=== PATIENT | male | born 1970 | race Caucasian/White ===

== ENCOUNTER 2016-08-30 10:08 | Emergency (ER) | payer OTHER ==
[2016-08-30] MEDS ORDERED: NS 0.9% 1000 ML* 2,000 ML IV ONE (11:51)
[2016-08-30 12:13] LABS: Hematocrit 42 % (42-52); Hemoglobin 13.8 g/dl (14.0-18.0); Mean Corpuscular HGB Conc 33 g/dl (31-36); Mean Corpuscular Hemoglobin 30 pg (27-31); Mean Corpuscular Volume 91 fL (80-94); Mean Platelet Volume 8 um3 (7.4-10.4); Red Blood Count 4.58 10^6/ul (4.0-5.4); Red Cell Distribution Width 14 % (10.5-15); White Blood Count 11.5 10^3/ul (3.5-10.8)
[2016-08-30 12:20] LABS: Urine Bilirubin Negative (Negative); Urine Glucose Negative (Negative); Urine Nitrite Negative (Negative)
--- NOTE | 2016-08-30 12:24 | RAD ---
INDICATION: Syncope. COMPARISON: Comparison is made with a prior chest x-ray study from July 05, 2015. TECHNIQUE: A portable view of the chest was obtained. FINDINGS: Cardiac and mediastinal contours appear to be within normal limits. The lungs are hyperinflated and grossly clear. No pleural effusion is seen. IMPRESSION: NO EVIDENCE FOR ACUTE FINDING.
[2016-08-30 12:26] LABS: Albumin 4.4 g/dL (3.2-5.2); BUN/Creatinine Ratio 17.4 (8-20); C Reactive Protein 2.17 mg/L (< 5.00); Calcium 9.7 mg/dL (8.6-10.3); EGFR African American 122.6 (>60); EGFR Non-African American 95.3 (>60); Magnesium 2.1 mg/dL (1.9-2.7); Potassium 3.8 mmol/L (3.5-5.0); Total Bilirubin 0.5 mg/dL (0.2-1.0); Total Protein 7.4 g/dL (6.4-8.9)
--- NOTE | 2016-08-30 12:40 | RAD ---
Indication: Headaches after fall. CT of the brain was performed without IV contrast. Ventricular structures are midline. No midline shift is noted. The extra-axial spaces are unremarkable. There is no evidence of intracranial mass or hemorrhage. No other high or low density lesions are identified. The bony calvaria including mastoid air cells and paranasal sinuses are otherwise unremarkable. Compared to previous exam of 07/05/2015 no significant change is noted. IMPRESSION: No intracranial mass or hemorrhage is noted.
--- NOTE | 2016-08-30 12:45 | RAD ---
Indication: Neck injury after fall. CT of the cervical spine was obtained in the axial plane. Sagittal and coronal reconstructed images were obtained. The skull base demonstrates mastoid air cells to be well aerated. No fractures noted. The C1 ring is intact. No fracture is identified. Degenerative changes of the atlantoaxial joint is noted. The vertebral bodies appear normal in height. At C2-3, C3-4 and C4-5 there is no disc protrusion. No central foraminal stenosis is noted. No fracture is noted. At C5-6 disc space narrowing with minimal broad-based protrusion flattens the thecal sac. No fractures noted. No central foraminal stenosis is noted. At C6-7 no focal protrusion is identified. No central foraminal stenosis is noted. At C7-T1 no disc protrusion is noted. The lung apices are unremarkable. IMPRESSION: DEGENERATIVE DISC DISEASE AT C5-6 AND C6-7. NO FRACTURE OF THE CERVICAL SPINE IS PRESENT.
[2016-08-30 13:01] LABS: TSH (Thyroid Stimulating Horm) 0.82 mcIU/mL (0.34-5.60)
--- NOTE | 2016-08-30 14:10 | ED ---
H[facility] Marquis Matthew, scribed for Franklyn Serna MD on 08/30/16 at 1231 . 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 The patient was in a large warehouse, with people cleaning near him. He denies chest pain at this time. He states that he syncopate and is unsure if he's hit his head. According to his significant other, he had white foam around his mouth. He has a Hx of syncope, chronic headaches, and a concussion. No Hx of asthma. He also c/o of a sore throat and rhinorrhea. He denies chest pain. His symptoms are improved with fresh air. - History of Current Complaint Chief Complaint: EDGeneral Stated Complaint: CHEMICAL EXPOSURE Hx Obtained From: Patient Onset/Duration: Sudden Onset, Lasting Hours, Still Present Timing: Constant Initial Severity: Mild Current Severity: Mild Pain Intensity: 3 Character: Dyspnea at Rest Sputum Amount: None Alleviating Factor(s): Nothing Associated Signs and Symptoms: Dyspnea - Allergy/Home Medications Allergies/Adverse Reactions: Allergies Allergy/AdvReac Type Severity Reaction Status Date / Time Acetaminophen [From Vicodin] Allergy Unknown Unknown Verified 07/06/15 07:27 Reaction Details Coconut Flavor Allergy Unknown Unknown Verified 07/06/15 07:28 Reaction Details Hydrocodone [From Vicodin] Allergy Unknown Unknown Verified 07/06/15 07:27 Reaction Details Home Medications: Home Medications Citalopram Hydrobromide [Celexa] 40 mg PO DAILY 08/30/16 [History Confirmed ] DULoxetine CAP* [Cymbalta CAP*] 30 mg PO DAILY 08/30/16 [History Confirmed ] Lorazepam [Ativan] 1 mg PO DAILY 08/30/16 [History Confirmed 08/30/16] Meloxicam 7.5 mg PO TID PRN 08/30/16 [History Confirmed 08/30/16] Orphenadrine Er 100 mg PO BID PRN 08/30/16 [History Confirmed 08/30/16] PMH/Surg Hx/FS Hx/Imm Hx Endocrine/Hematology History: Denies: Hx Diabetes, Hx Thyroid Disease Cardiovascular History: Denies: Hx Hypertension Respiratory History: Denies: Hx Asthma, Hx Chronic Obstructive Pulmonary Disease (COPD) GI History: Denies: Hx Ulcer Psychiatric History: Reports: Hx of Violent Episodes Against Others Denies: Hx Eating Disorder Infectious Disease History: No Infectious Disease History: Reports: Hx Shingles Denies: Hx Clostridium Difficile, Hx Hepatitis, Hx Human Immunodeficiency Virus (HIV), Hx of Known/Suspected MRSA, Hx Tuberculosis, Hx Known/Suspected VRE , Hx Known/Suspected VRSA, History Other Infectious Disease, Traveled Outside the [place] in Last 30 Days - Family History Known Family History: Positive: Diabetes - Social History Alcohol Use: None Substance Use Type: Reports: None Smoking Status (MU): Heavy Every Day Tobacco Smoker Type: Cigarettes Amount Used/How Often: 1/2 ppd per day Length of Time of Smoking/Using Tobacco: 30+ YEARS Review of Systems Constitutional: Negative Eyes: Negative Positive: Sore Throat, Nasal Discharge Cardiovascular: Negative Negative: Chest Pain Respiratory: Other - Difficulty breathing Gastrointestinal: Negative Genitourinary: Negative Musculoskeletal: Negative Skin: Negative Neurological: Negative Psychological: Normal All Other Systems Reviewed And Are Negative: Yes Physical Exam Triage Information Reviewed: Yes Vital Signs On Initial Exam: Initial Vitals Temp Pulse Resp BP Pulse Ox 99.1 F 66 14 125/76 100 08/30/16 10:16 08/30/16 10:16 08/30/16 10:16 08/30/16 10:16 08/30/16 10:16 Vital Signs Reviewed: Yes Appearance: Positive: Well-Appearing, No Pain Distress Skin: Positive: Warm, Skin Color Reflects Adequate Perfusion, Dry Head/Face: Positive: Normal Head/Face Inspection Eyes: Positive: EOMI, BRAYAN ENT: Positive: Normal ENT inspection Neck: Positive: Supple, Nontender Respiratory/Lung Sounds: Positive: Clear to Auscultation, Breath Sounds Present Cardiovascular: Positive: RRR Abdomen Description: Positive: Nontender, Soft Bowel Sounds: Positive: Present Musculoskeletal: Positive: Normal, Strength/ROM Intact Neurological: Positive: Normal, Sensory/Motor Intact, Alert, Oriented to Person Place, Time Psychiatric: Positive: Normal, Affect/Mood Appropriate - Chyna Coma Scale Coma Scale Total: 15 Diagnostics - Vital Signs Vital Signs Temp Pulse Resp BP Pulse Ox 08/30/16 10:16 99.1 F 66 14 125/76 100 - Laboratory Lab Results: Lab Results 01/08/30/16 08/30/16 Range/Units 12:04 12:04 12:04 WBC 11.5 H (3.5-10.8) 10^3/ul RBC 4.58 (4.0-5.4) 10^6/ul Hgb 13.8 L (14.0-18.0) g/dl Hct 42 (42-52) % MCV 91 (80-94) fL MCH 30 (27-31) pg MCHC 33 (31-36) g/dl RDW 14 (10.5-15) % Plt Count 229 (150-450) 10^3/ul MPV 8 (7.4-10.4) um3 Neut % (Auto) 68.8 (38-83) % Lymph % (Auto) 22.7 L (25-47) % [place] % (Auto) 6.7 (1-9) % Eos % (Auto) 0.7 (0-6) % Baso % (Auto) 1.1 (0-2) % Absolute Neuts (auto) 7.9 H (1.5-7.7) 10^3/ul Absolute Lymphs (auto) 2.6 (1.0-4.8) 10^3/ul Absolute Monos (auto) 0.8 (0-0.8) 10^3/ul Absolute Eos (auto) 0.1 (0-0.6) 10^3/ul Absolute Basos (auto) 0.1 (0-0.2) 10^3/ul Absolute Nucleated RBC 0.01 10^3/ul Nucleated RBC % 0 INR (Anticoag Therapy) 0.98 (0.89-1.11) APTT 33.4 (26.0-36.3) seconds Sodium (133-145) mmol/L Potassium (3.5-5.0) mmol/L Chloride (101-111) mmol/L Carbon Dioxide (22-32) mmol/L Anion Gap (2-11) mmol/L BUN (6-24) mg/dL Creatinine (0.67-1.17) mg/dL Est GFR ( Amer) (>60) Est GFR (Non-Af Amer) (>60) BUN/Creatinine Ratio (8-20) Glucose (70-100) mg/dL Lactic Acid (0.5-2.0) mmol/L Calcium (8.6-10.3) mg/dL Magnesium (1.9-2.7) mg/dL Total Bilirubin (0.2-1.0) mg/dL AST (13-39) U/L ALT (7-52) U/L Alkaline Phosphatase (34-104) U/L Total Creatine Kinase (10-223) U/L CK-MB (CK-2) (0.6-6.3) ng/mL Troponin I (<0.04) ng/mL C-Reactive Protein (< 5.00) mg/L Total Protein (6.4-8.9) g/dL Albumin (3.2-5.2) g/dL Globulin (2-4) g/dL Albumin/Globulin Ratio (1-3) Lipase (11.0-82.0) U/L TSH (0.34-5.60) mcIU/mL Urine Color Yellow Urine Appearance Clear Urine pH 7.0 (5-9) Ur Specific [place] 1.012 (1.010-1.030) Urine Protein Negative (Negative) Urine Ketones Negative (Negative) Urine Blood Negative (Negative) Urine Nitrate Negative (Negative) Urine Bilirubin Negative (Negative) Urine Urobilinogen Negative (Negative) Ur Leukocyte Esterase Negative (Negative) Urine Glucose Negative (Negative) 08/30/16 08/30/16 Range/Units 12:04 12:04 WBC (3.5-10.8) 10^3/ul RBC (4.0-5.4) 10^6/ul Hgb (14.0-18.0) g/dl Hct (42-52) % MCV (80-94) fL MCH (27-31) pg MCHC (31-36) g/dl RDW (10.5-15) % Plt Count (150-450) 10^3/ul MPV (7.4-10.4) um3 Neut % (Auto) (38-83) % Lymph % (Auto) (25-47) % [place] % (Auto) (1-9) % Eos % (Auto) (0-6) % Baso % (Auto) (0-2) % Absolute Neuts (auto) (1.5-7.7) 10^3/ul Absolute Lymphs (auto) (1.0-4.8) 10^3/ul Absolute Monos (auto) (0-0.8) 10^3/ul Absolute Eos (auto) (0-0.6) 10^3/ul Absolute Basos (auto) (0-0.2) 10^3/ul Absolute Nucleated RBC 10^3/ul Nucleated RBC % INR (Anticoag Therapy) (0.89-1.11) APTT (26.0-36.3) seconds Sodium 134 (133-145) mmol/L Potassium 3.8 (3.5-5.0) mmol/L Chloride 102 (101-111) mmol/L Carbon Dioxide 27 (22-32) mmol/L Anion Gap 5 (2-11) mmol/L BUN 15 (6-24) mg/dL Creatinine 0.86 (0.67-1.17) mg/dL Est GFR ( Amer) 122.6 (>60) Est GFR (Non-Af Amer) 95.3 (>60) BUN/Creatinine Ratio 17.4 (8-20) Glucose 86 (70-100) mg/dL Lactic Acid 0.8 (0.5-2.0) mmol/L Calcium 9.7 (8.6-10.3) mg/dL Magnesium 2.1 (1.9-2.7) mg/dL Total Bilirubin 0.50 (0.2-1.0) mg/dL AST 18 (13-39) U/L ALT 13 (7-52) U/L Alkaline Phosphatase 56 (34-104) U/L Total Creatine Kinase 119 (10-223) U/L CK-MB (CK-2) 1.6 (0.6-6.3) ng/mL Troponin I 0.00 (<0.04) ng/mL C-Reactive Protein 2.17 (< 5.00) mg/L Total Protein 7.4 (6.4-8.9) g/dL Albumin 4.4 (3.2-5.2) g/dL Globulin 3.0 (2-4) g/dL Albumin/Globulin Ratio 1.5 (1-3) Lipase 20 (11.0-82.0) U/L TSH 0.82 (0.34-5.60) mcIU/mL Urine Color Urine Appearance Urine pH (5-9) Ur Specific [place] (1.010-1.030) Urine Protein (Negative) Urine Ketones (Negative) Urine Blood (Negative) Urine Nitrate (Negative) Urine Bilirubin (Negative) Urine Urobilinogen (Negative) Ur Leukocyte Esterase (Negative) Urine Glucose (Negative) Result Diagrams: 08/30/16 12:04 08/30/16 12:04 Lab Statement: Any lab studies that have been ordered have been reviewed, and results considered in the medical decision making process. - Radiology CXR Xray Interpretation: No Acute Changes - IMPRESSION: NO EVIDENCE FOR ACUTE FINDING. Radiology Interpretation Completed By: Radiologist - CT C-Spine CT CT Interpretation: No Acute Changes CT Interpretation Completed By: Radiologist Brain CT CT Interpretation: No Acute Changes - IMPRESSION: No intracranial mass or hemorrhage is noted. CT Interpretation Completed By: Radiologist - EKG 10:19 Cardiac Rate: NL EKG Rhythm: Sinus Rhythm ST Segment: Normal Ectopy: None Disposition - Course Assessment/Plan: WELL IN ED. DISCUSSED RESULTS WITH PATINET/. DISCHARGE HOME STABLE. - Diagnoses Provider Diagnoses: Syncope, Exposure to chemical inhalation Discharge - Discharge Plan Condition: Stable Disposition: HOME Patient Education Materials: Syncope (ED) Forms: *Work Release Referrals: Vikas Chanel MD [Primary Care Provider] - Additional Instructions: FOLLOW UP WITH YOUR DOCTOR FOR YOU SYNCOPAL EPISODE AND INHALATION EXPOSURE. RETURN TO THE EMERGENCY DEPARTMENT FOR ANY WORSENING OF YOUR CONDITION OR QUESTIONS OR CONCERNS. The documentation as recorded by the [facility] catherine Matthew accurately reflects the service I personally performed and the decisions made by me, Franklyn Serna MD.
[2016-08-30 14:27] VITALS: BP 110/75
== END 2016-08-30 14:26 | disposition home or self-care (01) ==
LOC: ED 10:08
DX: R55 Syncope and collapse (principal); Z77.098 Contact with and (suspected) exposure to other hazardous, chiefly nonmedicinal, chemicals; Y92.9 Unspecified place or not applicable; F17.210 Nicotine dependence, cigarettes, uncomplicated; Z88.5 Allergy status to narcotic agent
CPT/HCPCS: 36415; 70450; 71010; 72125; 80053; 81003; 82550; 82553; 83605; 83690; 83735; 84443; 84484; 85025; 85610; 85730; 86140; 93005; 99282

== ENCOUNTER 2019-03-19 19:38 | Emergency (ER) | payer SELFPAY ==
[2019-03-19 19:52] VITALS: BP 110/72
--- NOTE | 2019-03-19 20:23 | UC ---
Dental HPI - HPI Summary HPI Summary: He's had about a day of pain and now swelling in his left lower jaw. - History of Current Complaint Chief Complaint: UCDentalProblem Stated Complaint: ABCESS TOOTH Time Seen by Provider: 03/19/19 20:14 Hx Obtained From: Patient Onset/Duration: Gradual Onset, Lasting Days Severity: Severe Pain Intensity: 10 Aggravating Factor(s): Heat, Cold - Allergies/Home Medications Allergies/Adverse Reactions: Allergies Allergy/AdvReac Type Severity Reaction Status Date / Time acetaminophen [From Vicodin] Allergy Vomiting Verified 03/19/19 19:54 hydrocodone [From Vicodin] Allergy Vomiting Verified 03/19/19 19:54 cocoanut flavoring Allergy Anaphylatic Uncoded 03/19/19 19:54 Shock Home Medications: Home Medications ALPRAZolam TAB* [Xanax TAB*] 0.5 mg PO TID PRN 03/19/19 [History Confirmed 03/19] Sertraline* [Zoloft*] 25 mg PO BEDTIME 03/19/19 [History Confirmed 03/19/19] PMH/Surg Hx/FS Hx/Imm Hx Previously Healthy: Yes - Surgical History Surgical History: None - Family History Known Family History: Positive: Diabetes - Social History Alcohol Use: None Substance Use Type: Marijuana Smoking Status (MU): Light Every Day Tobacco Smoker Type: Cigarettes Amount Used/How Often: 1/2 ppd per day Length of Time of Smoking/Using Tobacco: 30+ YEARS Household Exposure Type: Cigarettes Review of Systems All Other Systems Reviewed And Are Negative: Yes Constitutional: Positive: Negative Skin: Positive: Negative ENT: Positive: Dental Pain Physical Exam - Summary Physical Exam Summary: He is nontoxic in appearance with stable vital signs. Triage Information Reviewed: Yes Appearance: Well-Appearing, Pain Distress Vital Signs: Initial Vital Signs Temp 99.3 F 03/19/19 19:47 Pulse 77 03/19/19 19:47 Resp 16 03/19/19 19:47 BP 110/72 03/19/19 19:47 Pulse Ox 100 03/19/19 19:47 Vital Signs Reviewed: Yes Eye Exam: Normal ENT Exam: Normal Dental: Positive: Abscess @ - Left premolar it is spontaneously draining Neck: Positive: Supple, No Lymphadenopathy Dental Complaint Course/Dx - Course Course Of Treatment: He has a dental abscess but it is spontaneously draining. I'm going to give him Pen-Vee K and tramadol. He got significantly nauseated to Vicodin. - Differential Dx/Diagnosis Provider Diagnosis: Dental abscess Discharge - Sign-Out/Discharge Documenting (check all that apply): Patient Departure All imaging exams completed and their final reports reviewed: No Studies - Discharge Plan Condition: Stable Disposition: HOME Patient Education Materials: Dental Abscess (ED) Referrals: Vikas Chanel MD [Primary Care Provider] - Additional Instructions: This should get better with antibiotics and pain medication as it is spontaneously draining. If not improved in a couple of days please follow up with the dentist. - Billing Disposition and Condition Condition: STABLE Disposition: Home
== END 2019-03-19 20:31 | disposition home or self-care (01) ==
LOC: UCEAST 19:38
DX: K04.7 Periapical abscess without sinus (principal); F17.210 Nicotine dependence, cigarettes, uncomplicated; Z88.5 Allergy status to narcotic agent
CPT/HCPCS: 99212; G0463

== ENCOUNTER 2019-03-21 12:56 | Emergency (ER) | payer SELFPAY | END 2019-03-21 13:16 | disposition left against medical advice (07) | LOC: UCCORT 12:56 | DX: Z53.8 Procedure and treatment not carried out for other reasons (principal) ==

== ENCOUNTER 2019-08-28 13:00 | Emergency (ER) | payer BC ==
[2019-08-28 13:11] VITALS: BP 108/69
--- NOTE | 2019-08-28 14:40 | UC ---
Dental HPI - HPI Summary HPI Summary: patient presents to urgent care for evaluation of pain in his left lower tooth. Patient states it's been progressive for 2-3 days. Patient has been taking several Tylenol today without improvement. Patient had the same discomfort in the same tooth approximately 3 months ago to the antibiotics and symptoms resolved. Patient states his appointment with [facility] scheduled for Tuesday but he came here because he was concerned it was infection. No fevers or chills. Not in the upper murmurs. Patient states he does have a broken tooth at the site of pain. Patient without any trouble swallowing. No intraoral edema. Patient's medications as entered in EMR reviewed this visit. - History of Current Complaint Chief Complaint: UCDentalProblem Stated Complaint: DENTAL PAIN Time Seen by Provider: 08/28/19 14:25 Hx Obtained From: Patient Severity: Moderate Pain Intensity: 8 Pain Scale Used: 0-10 Numeric - Allergies/Home Medications Allergies/Adverse Reactions: Allergies Allergy/AdvReac Type Severity Reaction Status Date / Time acetaminophen [From Vicodin] Allergy Vomiting Verified 03/19/19 19:54 coconut Allergy Anaphylatic Verified 08/28/19 13:12 Shock hydrocodone [From Vicodin] Allergy Vomiting Verified 03/19/19 19:54 PMH/Surg Hx/FS Hx/Imm Hx Previously Healthy: Yes - Surgical History Surgical History: None - Family History Known Family History: Positive: Diabetes, Non-Contributory - Social History Occupation: Employed Full-time Lives: With Family Alcohol Use: None Substance Use Type: None Smoking Status (MU): Light Every Day Tobacco Smoker Type: Cigarettes Amount Used/How Often: 1/2 ppd per day Length of Time of Smoking/Using Tobacco: 30+ YEARS Household Exposure Type: Cigarettes Review of Systems All Other Systems Reviewed And Are Negative: Yes Constitutional: Positive: Negative Skin: Positive: Negative ENT: Positive: Dental Pain Respiratory: Positive: Negative Cardiovascular: Positive: Negative Motor: Positive: Negative Neurological: Positive: Negative Physical Exam - Summary Physical Exam Summary: Vital Signs Reviewed: Yes A+Ox3, no distress Eyes: Conjunctiva Clear, BRAYAN. EOM intact and full ENT: Hearing grossly normal TM x 2 clear, mmoist, uvula midline, no exudate, no erythema Dental Pt with poor dentition, multiple cavities and teeth broken at gumline. Pt with TTP #19 tooth broken on posterior aspect + TTP mild erythema at gumline. No drainage, no fluctuance no odor no edema Neck: Positive: Supple Respiratory: Positive: No respiratory distress, No accessory muscle use + CTA throughout no w/r Cardiovascular: RRR nl s1, s2 no m/r CBT <2 sec abd soft + BS nt/nd no guarding, no distension Musculoskeletal Exam: SALGADO x 4 without difficulty Strength Intact, ROM Intact Neurological: Positive: Alert, + sensation throughout Psychological: Positive: Normal Response To examiner Skin: Positive: no rash, no ecchymosis Triage Information Reviewed: Yes Vital Signs: Initial Vital Signs Temp 98.9 F 08/28/19 13:09 Pulse 76 08/28/19 13:09 Resp 18 08/28/19 13:09 BP 108/69 08/28/19 13:09 Pulse Ox 100 08/28/19 13:09 Dental Complaint Course/Dx - Course Course Of Treatment: Patient presents to urgent care for evaluation of pain in the left lower dental area. Patient states progressive the last to 3 days. Patient has appointment with his dentist next Tuesday. Patient states infection the same tooth approximately 3 months ago he wants help. Patient has been taking Tylenol and excess. On exam vital signs are stable. Patient with mild discomfort. Patient with tenderness and concern for infection #19 tooth. No fluctuation. No intraoral edema. Patient is not immune compromise. We'll start patient any Lasix. Social warm salt water. Review with patient Motrin and Tylenol dosing. Keep his appointment on Tuesday. Return precautions discussed. Patient comfortable and in agreement with plan. Patient declined work note. Patient states he is able to get the prescription without difficulty. - Differential Dx/Diagnosis Provider Diagnosis: Pain, dental Discharge ED - Sign-Out/Discharge Documenting (check all that apply): Patient Departure All imaging exams completed and their final reports reviewed: No Studies - Discharge Plan Condition: Stable Disposition: HOME Prescriptions: Penicillin VK 500 MG TAB(NF) [Penicillin VK 500 mg Tab] 500 mg PO TID #30 tab Patient Education Materials: Toothache (ED) Referrals: Vikas Chanel MD [Primary Care Provider] - Additional Instructions: - Okay to alternate ibuprofen (Advil, Motrin) 600mg and Acetaminophen (Tylenol) 1000mg every 3 hours for pain. Take with food. Do NOT take for more than 4-5 days - Take antibiotics as prescribed until gone - Okay to swish and spot warm, salty water over the afftected tooth 2-3 times a day - Okay to use over the counter Ambusol for pain - use EXACTLY as prescribed - Keep your appointment at [facility] as scheduled for Tuesday. If you develop fevers, facial swelling, difficulty swalllowing or any other concerns it is recommended you go to the emergency department for further evaluation and treatment - Billing Disposition and Condition Condition: STABLE Disposition: Home
== END 2019-08-28 14:51 | disposition home or self-care (01) ==
LOC: UCEAST 13:00
DX: K08.89 Other specified disorders of teeth and supporting structures (principal); F17.210 Nicotine dependence, cigarettes, uncomplicated; Z88.8 Allergy status to other drugs, medicaments and biological substances; Z91.018 Allergy to other foods; Z88.5 Allergy status to narcotic agent
CPT/HCPCS: 99212; G0463

== ENCOUNTER 2019-12-05 21:52 | Emergency (ER) | payer BC ==
[2019-12-05] MEDS ORDERED: Ondansetron INJ* 2 MG/ML VIAL IV ONE (22:54)
[2019-12-05] MEDS ORDERED: NS 0.9% 1000 ML** 1,000 ML IV.FLUID IV ONE (23:01)
[2019-12-05] MEDS ORDERED: Pantoprazole IV* 40 MG IV ONE (23:05)
--- NOTE | 2019-12-05 23:06 | ED ---
GI/ HPI - HPI Summary HPI Summary: 49-year-old male presenting to [facility] with a chief complaint of persistent nausea and vomiting since early this afternoon. He reports he went to [facility] around 11:00 this morning, where he ate a Big Mac. Following this, he developed nausea and began vomiting. Since then, he has continued to vomit. He also has had profuse epigastric pain after vomiting, diarrhea, and cold sweats. He has not taken any medications for treatment at home. He denies any fevers, CP , SOB, or cough. Pain is rated 9/10 in severity. Past medical history includes anxiety, depression, neck/back/hip pain, shingles. Current smoker. Admits to occasional marijuana use and rare alcohol use. Medications reviewed. Allergies noted. - History of Current Complaint Time Seen by Provider: 12/05/19 22:18 Stated Complaint: VOMITING/DIZZINESS/WEAKNESS PER PT Hx Obtained From: Patient Onset/Duration: Started Hours Ago, Still Present Timing: Constant Severity: Moderate Current Severity: Severe Pain Intensity: 9 Location of Pain: Epigastric Pain Characteristics: Sharp Associated Signs and Symptoms: Positive: Nausea, Vomiting, Diarrhea, Diaphoresis , Chills, Abdominal Pain. Negative: Fever, Cough, Chest Pain, Other: - SOB Aggravating Factor(s): Nothing Alleviating Factor(s): Nothing - Allergy/Home Medications Allergies/Adverse Reactions: Allergies Allergy/AdvReac Type Severity Reaction Status Date / Time acetaminophen [From Vicodin] Allergy Vomiting Verified 03/19/19 19:54 coconut Allergy Anaphylatic Verified 08/28/19 13:12 Shock hydrocodone [From Vicodin] Allergy Vomiting Verified 03/19/19 19:54 Home Medications: Home Medications ALPRAZolam TAB* [Xanax TAB*] 0.25 - 0.5 mg PO BID PRN 12/05/19 [History Confirmed 12/05/19] DOXYcycline CAP(*) [DOXYcycline 100MG CAP(*)] 100 mg PO BID 12/05/19 [History Confirmed 12/05/19] Meloxicam(NF) [Mobic(NF)] 15 mg PO DAILY WITH MEAL 12/05/19 [History Confirmed 12/05/19] Sertraline* [Zoloft*] 100 mg PO DAILY 12/05/19 [History Confirmed 12/05/19] PMH/Surg Hx/FS Hx/Imm Hx Endocrine/Hematology History: Denies: Hx Diabetes, Hx Thyroid Disease Cardiovascular History: Denies: Hx Hypertension Respiratory History: Denies: Hx Asthma, Hx Chronic Obstructive Pulmonary Disease (COPD) GI History: Denies: Hx Ulcer Musculoskeletal History: Reports: Hx Back Problems Psychiatric History: Reports: Hx Anxiety, Hx Depression, Hx of Violent Episodes Against Others Denies: Hx Eating Disorder - Surgical History Surgical History: None Infectious Disease History: Reports: Hx Shingles - 2016, right ear and shoulder Denies: Hx Clostridium Difficile, Hx Hepatitis, Hx Human Immunodeficiency Virus (HIV), Hx of Known/Suspected MRSA, Hx Tuberculosis, Hx Known/Suspected VRE , Hx Known/Suspected VRSA, History Other Infectious Disease, Traveled Outside the [place] in Last 30 Days - Family History Known Family History: Positive: Diabetes - Social History Alcohol Use: Rare Hx Substance Use: No Substance Use Type: Reports: None Hx Tobacco Use: Yes Smoking Status (MU): Light Every Day Tobacco Smoker Type: Cigarettes Amount Used/How Often: 1/2 ppd per day Length of Time of Smoking/Using Tobacco: 30+ YEARS - Additional Comments History Additional Comments: anxiety, depression, current smoker Review of Systems - ROS Summary Review of Systems Summary: Home Medications Medication Instructions Recorded Confirmed Type ALPRAZolam TAB* [Xanax TAB*] 0.25 - 0.5 mg PO BID PRN 12/05/19 12/05/19 History DOXYcycline CAP(*) [DOXYcycline 100 mg PO BID 12/05/19 12/05/19 History 100MG CAP(*)] Meloxicam(NF) [Mobic(NF)] 15 mg PO DAILY WITH MEAL 12/05/19 12/05/19 History Sertraline* [Zoloft*] 100 mg PO DAILY 12/05/19 12/05/19 History Positive: Chills, Skin Diaphoresis. Negative: Fever Negative: Chest Pain Negative: Shortness Of Breath, Cough Positive: Abdominal Pain - epigastric, Vomiting, Diarrhea, Nausea All Other Systems Reviewed And Are Negative: Yes Physical Exam - Summary Physical Exam Summary: General: Mildly ill-appearing. Well-developed, Cachectic-appearing male. Actively vomiting. HEENT: Normocephalic, Atraumatic. Eyes: Conjuctiva normal, PERRL. Oropharynx: Clear, mucous membranes moist, (-) exudates. Neck: Soft, FROM, (-) lymphadenopathy, (-) thyromegaly, (-) JVD. Cardiovascular: Normal sinus rhythm, (-) murmur. Lungs: Clear to auscultation bilaterally (-) wheezes, (-) rales, (-) rhonchi. Abdomen: Soft, mild epigastric tenderness, non-distended, (-) organomegaly, normal bowel sounds. Back: (-) CVA tenderness Extremities: No edema. Skin: Warm, diaphoretic, (-) rash. Neuro: Alert and oriented x3, moves all extremities equally. No ataxia. No gait disturbance. No sensory deficit. Normal strength, normal sensation. Psychiatric: Mood normal, affect normal. Triage Information Reviewed: Yes Vital Signs Reviewed: Yes Procedures - Sedation Patient Received Moderate/Deep Sedation with Procedure: No Diagnostics - Laboratory Result Diagrams: 12/05/19 23:00 12/05/19 23:00 Lab Statement: Any lab studies that have been ordered have been reviewed, and results considered in the medical decision making process. - CT Abd/Pel CT CT Interpretation Completed By: Radiologist Summary of CT Findings: Impression: No acute CT pathology. This report was reviewed by Dr. Gunter. Re-Evaluation - Re-Evaluation First Eval Re-Evaluation Time: 01:15 Change: Improved Comment: I discussed all results and symptoms have improved. Discussed all symptoms that warrant return to the ED. GIGU Course/Dx - Course Course Of Treatment: 49-year-old male presents from home with abdominal pain and vomiting. He states his symptoms all started this morning about 11:00. He had gone to [employer] and got a big Mac. Finished eating it. Shortly thereafter began experiencing abdominal pain and has not been able to stop vomiting since then. No one else is sick at home. He denies any fevers although he does feel sweaty. Has also had diarrhea. No chest pain, cough, shortness of breath. On physical exam patient is afebrile. Actively vomiting. Mild diffuse upper abdominal tenderness. No distention normal bowel sounds. Patient is given IV fluids, Zofran, Protonix. Workup demonstrates elevated white count. CT abdomen and pelvis is essentially normal. Patient tells somewhat better. Then given a second liter of IV fluids. Reglan and Benadryl. Significant relief of his symptoms. He is discharged to home with 5 samples of Zofran. Advised clear fluids and rest. Follow-up with PCP. Follow sooner for any worsening symptoms. - Diagnoses Provider Diagnoses: Tobacco use, Vomiting, Diarrhea - Critical Care Time Critical Care Statement: Critical care time is provided exclusive of any time spent performing procedures. Discharge ED - Sign-Out/Discharge Documenting (check all that apply): Patient Departure - Patient will be discharged home. - Discharge Plan Condition: Stable Disposition: HOME Patient Education Materials: How to Stop Smoking (ED), Acute Nausea and Vomiting (ED), Acute Diarrhea (ED) Referrals: Vikas Chanel MD [Primary Care Provider] - 3 Days Additional Instructions: Please take Zofran for your nausea. Follow up with your primary care provider in 2-3 days. Return to the emergency department for any new or worsening symptoms. - Billing Disposition and Condition Condition: STABLE Disposition: Home - Attestation Statements Document Initiated by Toddibe: Yes Documenting Scribe: Jennie Rubin Provider For Whom Toddibe is Documenting (Include Credential): Zakia Sawant MD Scribe Attestation: Jennie Marquis, scribed for Zakia Sawant MD on 12/06/19 at 0508. Scribe Documentation Reviewed: Yes Provider Attestation: The documentation as recorded by the Jennie catherine accurately reflects the service I personally performed and the decisions made by , Zakia Sawant MD Status of Scribe Document: Viewed
[2019-12-05 23:22] LABS: ABS Basophils 0.2 10^3/ul (0-0.2); ABS Lymphocytes 0.7 10^3/ul (1.0-4.8); ABS Monocytes 0.5 10^3/ul (0-0.8); Hematocrit 43 % (42-52); Hemoglobin 14.7 g/dL (14.0-18.0); Lymphocyte % 4.4 %; Mean Corpuscular HGB Conc 35 g/dL (31-36); Mean Corpuscular Hemoglobin 32 pg (27-31); Mean Corpuscular Volume 91 fL (80-94); Mean Platelet Volume 8.5 fL (7.4-10.4); Nucleated Red Blood Cells % 0.1; Platelet Count 254 10^3/uL (150-450); Red Blood Count 4.65 10^6 /uL (4.18-5.48); Red Cell Distribution Width 14 % (10-15); White Blood Count 16.4 10^3/uL (3.5-10.8)
[2019-12-05 23:30] LABS: INR 1.15 (0.82-1.09)
[2019-12-05 23:35] LABS: Albumin 5.1 g/dL (3.2-5.2); Albumin/Globulin Ratio 1.6 (1-3); BUN/Creatinine Ratio 29.4 (8-20); C Reactive Protein 11.5 mg/L (<8.01); Calcium 10.2 mg/dL (8.6-10.3); EGFR African American 115.4 (>60); EGFR Non-African American 95.4 (>60); Globulin 3.2 g/dL (2-4); Potassium 3.9 mmol/L (3.5-5.0); Total Bilirubin 0.5 mg/dL (0.2-1.0); Total Protein 8.3 g/dL (6.4-8.9)
[2019-12-06] MEDS ORDERED: Metoclopramide IV* 5 MG/ML 2 ML VIAL IV ONE (00:02)
[2019-12-06] MEDS ORDERED: NS 0.9% 1000 ML** 1,000 ML IV ONE (00:02)
[2019-12-06] MEDS ORDERED: diPHENhydraMINE IV* 50 MG/ML 1 ml VIAL (BENADRYL) IV ONE (00:03)
[2019-12-06] MEDS ORDERED: Iohexol 300* (CONTRAST) 10 ML SDV IV ONE (00:27)
[2019-12-06 01:09] LABS: Urine Appearance Clear; Urine Bilirubin Negative (Negative); Urine Blood Negative (Negative); Urine Color Yellow; Urine Glucose Negative (Negative); Urine Ketones 1+ (Negative); Urine Nitrite Negative (Negative); Urine Protein Negative (Negative); Urine Specific Gravity 1.031 (1.010-1.030); Urine Urobilinogen Negative (Negative)
[2019-12-06] MEDS ORDERED: O ndansetron ODT 4MG 5TAB PRPK 4 MG PAK PO ONE (01:10)
[2019-12-06 01:42] VITALS: BP 99/54
== END 2019-12-06 01:40 | disposition home or self-care (01) ==
LOC: ED 21:52
DX: F41.9 Anxiety disorder, unspecified (principal); F32.9 Major depressive disorder, single episode, unspecified; R11.2 Nausea with vomiting, unspecified; R19.7 Diarrhea, unspecified; R10.9 Unspecified abdominal pain; M54.2 Cervicalgia; F17.210 Nicotine dependence, cigarettes, uncomplicated; Z88.8 Allergy status to other drugs, medicaments and biological substances; Z79.899 Other long term (current) drug therapy
CPT/HCPCS: 36415; 74177; 80053; 81003; 83605; 83690; 85025; 85610; 86140; 87040; 96361; 96374; 96375; 99283; A9270-GY; J1200; J2405; J2765; Q9967